=== PATIENT | male | born 1930 | race Caucasian/White ===

== ENCOUNTER 2019-09-27 14:00 | Inpatient (IN) ==
[2019-09-27] MEDS ORDERED: NS 1,000 ML IV ONE ×2 (14:25→15:17)
[2019-09-27] MEDS ORDERED: TYLENOL PO ONE (14:29)
[2019-09-27 14:48] LABS: BASO# 0.01 X1000 (0.0-0.2); BASO% 0.1 % (0.0-0.8); HEMATOCRIT 44.7 % (42.0-52.0); HEMOGLOBIN 14.6 g/dL (14.0-18.0); IMM GRAN# 0.16 X1000 (0.0-0.04); IMM GRAN% 1.1 % (0.0-0.5); LYMPH# 0.19 X1000 (1.2-3.4); LYMPH% 1.4 % (20.5-51.1); MCH 32.2 PG (27-31); MCHC 32.7 g/dL (33-37); MCV 98.5 FL (81-99); MONO# 0.18 X1000 (0.11-0.59); MONO% 1.3 % (1.7-9.3); MPV 11.2 FL (7.4-10.4); NEUT# 13.43 X1000 (1.4-6.5); NEUT% 96.1 % (42.2-75.2); PLT 118 X1000 (130-400); RBC 4.54 XMIL (4.7-6.1); RDW 12.5 % (11.5-14.5); WBC 13.97 X1000 (4.8-10.8)
[2019-09-27 14:56] LABS: INR 1.11; PROTIME 14.9 Seconds (11.0-16.0)
[2019-09-27 14:57] LABS: PTT 35.1 Seconds (22.3-41.8)
[2019-09-27 14:58] LABS: ALBUMIN 4.3 g/dL (3.5-5.0); CALCIUM 9.5 mg/dL (8.8-10.2); CREATININE 1.4 mg/dL (0.7-1.2); POTASSIUM 4.6 mmol/L (3.5-5.1); TOTAL BILIRUBIN 1.9 mg/dL (0.20-1.00); TOTAL PROTEIN 6.4 g/dL (6.3-8.3)
[2019-09-27] MEDS ORDERED: NS 500 ML IV ONE (15:17)
[2019-09-27 15:20] LABS: INFLUENZA A NEGATIVE (NEGATIVE); INFLUENZA B NEGATIVE (NEGATIVE)
[2019-09-27] MEDS ORDERED: NS 50 ML ONE (15:40)
[2019-09-27] MEDS ORDERED: ROCEPHIN IV ONE (15:40)
--- NOTE | 2019-09-27 15:45 | PROVIDER DOCUMENTATION ---
This chart was entered by Anne-Marie Neumann Scribe, acting as scribe for Millie Simmons MD. HPI-General Adult - General Chief Complaint: Nausea/Vomiting Stated Complaint: NAUSEA & VOMITING Time Seen by Provider: 09/27/19 14:05 Source: patient Allergies/Adverse Reactions: Patient Allergies Allergy/AdvReac Type Severity Reaction Status Date / Time No Known Allergies Allergy Verified 09/27/19 14:53 Home Medications: Home Medication List Medication Instructions Recorded Confirmed Last Taken Type Carvedilol [Coreg] 6.25 mg PO BID 10/17/14 09/27/19 05/15/18 05:30 History Celecoxib [Celebrex] 200 mg PO DAILY 10/17/14 09/27/19 05/11/18 History Lisinopril/Hydrochlorothiazide 1 tab PO DAILY 10/17/14 09/27/19 05/14/18 09:00 History [Lisinopril-Hctz 20-12.5 mg Tab] Metformin [Glucophage] 500 mg PO DAILY 10/17/14 09/27/19 05/14/18 09:00 History SIMVAstatin [Zocor] 40 mg PO QHS 10/17/14 09/27/19 05/14/18 21:00 History Acetaminophen [Tylenol] 1,000 mg PO Q6H tablet 05/16/18 09/27/19 Unknown Rx Aspirin 1 tab PO DAILY 09/27/19 09/27/19 Unknown History Folic Acid 1 tab PO DAILY 09/27/19 09/27/19 Unknown History Davey-3 Fatty Acids/Fish Oil [Fish 1 cap PO DAILY 09/27/19 09/27/19 Unknown History Oil 1,000 mg Capsule] - History of Present Illness -Gen Adult Nature of Presenting Problems: Patient is a 89 year old male who presents to the ED via EMS with multiple symptoms. States symptoms of nausea, vomiting, chills, fever and weakness. Reports symptoms started this morning. Denies body aches and cough. Location of Pain/Injury: reports: none Quality of Pain: reports: none Severity: reports: mild Onset/Duration: reports: this morning Associated Symptoms: reports: fever/chills, nausea, vomiting, weakness Similar Symptoms Previously?: No Recently seen or treated by another doctor?: No Review of Systems - Adult - REVIEW OF SYSTEMS - ADULT Constitutional: reports: see HPI, chills, fever. denies: fatique Eyes: reports: no symptoms reported Ears, Nose, Mouth & Throat: reports: no symptoms reported Cardiovascular: reports: no symptoms reported Respiratory: reports: no symptoms reported Gastrointestinal: reports: see HPI, nausea, vomiting. denies: abdominal pain Genitourinary: reports: no symptoms reported Musculoskeletal: reports: see HPI, muscle weakness. denies: frequent leg cramps, muscle aches Integumentary: reports: no symptoms reported Neurological: reports: no symptoms reported Psychiatric: reports: no symptoms reported Endocrine: reports: no symptoms reported Hematologic/Lymphatic: reports: no symptoms reported Allergic/Immunologic: reports: no symptoms reported All Other Systems: Reviewed and Negative Past History - Adult - PAST MEDICAL HISTORY-ADULT Review of Records: reports: Old Records Reviewed, Nursing Assessment Review, Medications Reviewed, Social history reviewed & non-contributory. Major Childhood Illnesses: reports: denies history Cardiovascular: reports: HTN, hyperlipidemia Respiratory: reports: denies history Gastrointestinal: reports: other (diverticulitis) Obstetrical/Gynecological: reports: denies history Genitourinary: reports: denies history Musculoskeletal: reports: denies history Neurological: reports: denies history Endocrine/Immune: reports: denies history Other Conditions: reports: other cancer (melenoma) - PRIOR SURGERIES/PROCEDURES Surgical/Procedure History: reports: joint replacement, back/neck - IMMUNIZATION STATUS Childhood Immunizations: See Nurse Assessment Flu Vaccine: See Nurse Assessment - FAMILY HISTORY Family History: reviewed, not pertinent - SOCIAL HISTORY Smoking: denies Substance Use: alcohol Alcohol Use Frequency: every day Number of drinks per typical drinking period:: 2 drinks Physical Exam-General - PHYSICAL EXAM-ADULT Initial Vital Signs Reviewed: Yes - CONSTITUTIONAL General Appearance: alert, no apparent distress. negative: obtunded - HEAD, EARS, NOSE, MOUTH & THROAT HENMT: normocephalic/atraumatic, other (dry mucous membranes). negative: angioedema - RESPIRATORY Respiratory: chest non-tender, lungs clear, normal breath sounds. negative: increased rate - CARDIOVASCULAR Cardiovascular: normal peripheral pulses, regular rate, rhythm. negative: tachycardia - GASTROINTESTINAL (ABDOMEN) Abdominal Exam: normal bowel sounds, non tender, soft. negative: guarding - SKIN Integumentary: normal color, normal turgor, warm/dry. negative: diaphoresis, pallor - NEUROLOGIC Neurologic: grossly normal. negative: aphasia, facial droop - PSYCHIATRIC Psych/Mental Status: normal mood/affect, oriented x 3. negative: anxious Progress - PLAN OF CARE/RESULTS Progress/Plan/Lab Results: Vital Signs - 8 hr 09/27/19 14:04 Temperature 101.1 F H Pulse Rate 85 Respiratory Rate 16 Blood Pressure 111/60 O2 Sat by Pulse Oximetry 91 L Orders Category Date Time Status Oxygen Therapy- ED Nursing DIRECTED Care 09/27/19 14:15 Active Saline Loc DIRECTED Care 09/27/19 14:12 Active NPO Diet 09/27/19 14:12 Active CBC WITH ELECTRONIC DIFF [HEME] Stat Lab 09/27/19 14:12 Ordered COMPREHENSIVE METABOLIC PANEL [CHEM] Stat Lab 09/27/19 14:[address] Stat Lab 09/27/19 14:12 Uncollected URINALYSIS W/POSS RFLX CULT [URINALYSIS] Stat Lab 09/27/19 14:12 Uncollected Result Diagrams: 09/28/19 05:35 09/28/19 05:35 - XRAY 1 XRAY Study: Chest Impression: See EMR Report ( EXAM: CHEST-PORTABLE - 09/27/2019 HISTORY: fever TECHNIQUE: Portable chest COMPARISON: None. FINDINGS: There is elevation right hemidiaphragm. The right heart border is partially obscured by the elevated hemidiaphragm, heart size appears grossly normal. In addition to the elevated right hemidiaphragm, and inspiration is mildly shallow. The lungs appear essentially clear. There is no consolidation, pleural effusion, or pneumothorax identified. IMPRESSION: Mildly shallow inspiration. Elevation of right hemidiaphragm. No evidence of pneumonia. Electronically signed by [facility] becca Sanabria 09/27/2019 3:49 PM 09/27/19 [id number] Interpreting Physician: Robel Sanabria MD Dictated Date/Time: 09/27/19 1543 cc: Millie Simmons MD; None,PCP) - CONSULTS/PCP/HOSPITALIST Notification #1 *Consult/PCP/Hospitalist*: Dr. Sanders Time Discussed: 15:42 Reason/Comments: Dr. Simmons consulted with Dr. Sanders about patient. Departure - Departure Date of Disposition Decision: 09/27/19 Time of Disposition Decision: 15:42 DIAGNOSIS: Sepsis Qualifiers: Sepsis type: sepsis due to unspecified organism Sepsis acute organ dysfunction status: unspecified Qualified Code(s): A41.9 - Sepsis, unspecified organism Disposition: ADMITTED INPATIENT 09 Certified Medical Emergency: Emergent Condition: Critical - Critical Care Note This patient required my direct & personal management of CC.: Yes Total Time (mins): 31 Critical Care Statement: This patient required my direct personal management to treat or rule out processes, the absence of which, could potentiallly result in sudden, clinically significant life or limb threatening deterioration. Attestation - Physician/ WES Attestation The physician spent face to face time with patient:: Yes Advanced Practice Provider documentation review:: Supervising physician onsite and consulted in the evaluation and care of this patient. The physician did have a face to face encounter with the patient. This chart was documented by the indicated scribe, (Anne-Marie Neumann Scribe) and a ccurately reflects the services I performed and decisions made by me, Millie Simmons MD, as attested by the provider's signature.
--- NOTE | 2019-09-27 15:52 | Diag Imaging Result Doc PS360 ---
EXAM: CHEST-PORTABLE - 09/27/2019 HISTORY: fever TECHNIQUE: Portable chest COMPARISON: None. FINDINGS: There is elevation right hemidiaphragm. The right heart border is partially obscured by the elevated hemidiaphragm, heart size appears grossly normal. In addition to the elevated right hemidiaphragm, and inspiration is mildly shallow. The lungs appear essentially clear. There is no consolidation, pleural effusion, or pneumothorax identified. IMPRESSION: Mildly shallow inspiration. Elevation of right hemidiaphragm. No evidence of pneumonia. Electronically signed by Robel Sanabria 09/27/2019 3:49 PM
[2019-09-27] MEDS ORDERED: ROCEPHIN 1 GM in NS 50 ML IV SCH (16:00)
[2019-09-27 16:13] LABS: URINE SOURCE CATH
[2019-09-27 16:34] LABS: BILIRUBIN URINE NEGATIVE (NEGATIVE); BLOOD URINE NEGATIVE (NEGATIVE); COLOR ORANGE; GLUCOSE URINE NEGATIVE (NEGATIVE); KETONE URINE 10 mg/dL (NEGATIVE); LEUKOCYTES URINE NEGATIVE (NEGATIVE); NITRITE URINE NEGATIVE (NEGATIVE); PH URINE 6.5; PROTEIN URINE 50 mg/dL (NEGATIVE); SP GRAVITY URINE 1.023; TURBIDITY URINE CLEAR (CLEAR); UROBILINOGEN URINE NORMAL (NORMAL)
[2019-09-27 16:35] LABS: UR EPITHELIAL CELLS <10 /HPF (<10); URINE BACTERIA NEGATIVE /HPF; URINE RBC <10 /HPF (<10); URINE WBC <10 /HPF (<10)
[2019-09-27] MEDS ORDERED: TYLENOL PO PRN (16:35)
[2019-09-27] MEDS ORDERED: ZOFRAN IV PRN ×2 (16:35→17:37)
[2019-09-27] MEDS ORDERED: NS 1,000 ML IV SCH ×2 (16:35→17:45)
[2019-09-27] MEDS: LEVOPHED 8 MG in D5 1/2 NS 250 ML IV SCH ×2 (17:17→17:55)
[2019-09-28] MEDS ORDERED: TYLENOL PO PRN (00:04)
[2019-09-28] MEDS ORDERED: ZOFRAN IV PRN (00:04)
[2019-09-28] MEDS ORDERED: LEVOPHED 8 MG in D5 1/2 NS 250 ML IV SCH (00:15)
[2019-09-28] MEDS: NS 1,000 ML IV SCH ×2 (00:29→08:21)
[2019-09-28] MEDS: BLISTEX MEDICATED BERRY LIP BALM TOP PRN ×2 (02:31→08:22)
--- NOTE | 2019-09-28 03:56 | HISTORY AND PHYSICAL ---
PRIMARY CARE PHYSICIAN: Listed as none. CHIEF COMPLAINT: Nausea, vomiting, chills, subjective fever and weakness that began this a.m. and progressively worsened. HISTORY OF PRESENTING ILLNESS: This is an 89-year-old male who presents to [facility] ER via EMS with complaints of nausea, vomiting, chills, fever and weakness. He stated that the symptoms began this morning, he states he had a hard time controlling the chills. When he arrived to the emergency room he had a temperature of 101.1 degrees. His blood pressure was 111/60, saturating 91% on room air. He did drop a couple hours after he arrived his blood pressure down to 74/55, was given a total of 2.5 L of normal saline, it did come up to 95/53. We placed him in a Trendelenburg position, but he still dropped again to 74/55, so we are going to start a Levophed drip, and he will be admitted to the intensive care unit for further evaluation and treatment. He was noted to have a white count of 13.97, but no specific source of infection at this time. His urinalysis was negative, and his chest x-ray showed no evidence of pneumonia. PAST MEDICAL HISTORY: Hypertension, hyperlipidemia, melanoma, and diabetes type 2. PAST SURGICAL HISTORY: Right hip replacement, back and neck surgery, and an MRSA of the nasal cavity removed. FAMILY HISTORY: Reviewed and noncontributory. SOCIAL HISTORY: He currently lives with his . Denied any tobacco use. He drinks 2 liquor drinks daily, and denied any illicit drug use. ALLERGIES: He has no known drug allergies. HOME MEDICATIONS: A current list will need to be obtained, reconciled, reviewed and restarted as appropriate, we will place an order for nursing to update and confirm home medications. LABORATORY DATA: Showed a white blood cell count of 13.97, hemoglobin 14.6, hematocrit 44.7, platelets 118,000. PT and INR of 14.9 and 1.11. Sodium 139, potassium 4.6, chloride 100, CO2 is 23, BUN of 40, creatinine 1.4, glucose 148. Cardiac enzyme was negative, plasma lactate of 2.5. Urinalysis was negative. Influenza A and B were negative. Chest x-ray showed mild shallow inspiration, no evidence of pneumonia. REVIEW OF SYSTEMS: He was positive for a subjective fever, chills, generalized weakness, nausea, vomiting, some right upper quadrant abdominal tenderness. He denied any constipation, diarrhea, burning or hurting with urination. PHYSICAL EXAMINATION: VITAL SIGNS: On arrival he had a temperature of 101.1 degrees, pulse 85, respirations 16, blood pressure 111/60, saturating 91% on room air. About an hour and a half later on arrival he dropped his blood pressure to 74/55, he was given a 2.5 L bolus of normal saline, it did come up after he was placed in Trendelenburg also to 95/53, it then dropped again to 74/58. GENERAL: This is an 89-year-old male who is lying in the bed, answers questions appropriately. HEENT: Normocephalic, atraumatic. Normal ENT inspection. Oropharynx and nares are clear. EYES: Pupils are equal, round and reactive to light and accommodation. Extraocular movements are intact. NECK: Normal inspection. Normal range of motion. LUNGS: Clear to auscultation bilaterally with equal lung expansion and chest wall movement. HEART: Regular rate and rhythm. No murmurs, rubs, or gallops. ABDOMEN: Soft. There was some tenderness to the right upper quadrant. Bowel sounds are present x4 quadrants. MUSCULOSKELETAL: He had 4/5 strength x4 extremities. NEUROLOGICAL: The cranial nerves II-XII appear grossly intact. ASSESSMENT: 1. Sepsis. 2. Hypotension. 3. Mild leukocytosis. 4. Suspect a urinary tract infection, but we will have to await urine culture results. PLAN: He will be admitted to the Intensive Care Unit at [facility], placed on telemetry O2 per protocol. He has an indwelling Moreno catheter. We need to update and confirm home medications, and then we will review those to restart. Placed him on a Levophed drip per protocol, Rocephin 1 gram IV q. 24. Urine culture is pending. We will recheck a CBC and BMP in the a.m., and further orders after seen by attending. Dictated by TAMI Ji for Venkat Sanders MD cc: TAMI Ji MD
--- NOTE | 2019-09-28 04:48 | HISTORY AND PHYSICAL ---
ADDENDUM: Patient seen and examined by myself. Full note dictated and discussed with nurse practitioner. The patient presented with nausea, vomiting, fevers and chills. Generalized weakness. He is an 89-year-old male who is acutely ill. He is awake, alert, oriented. Unsure of the etiology of his current infection although certainly may be a urinary infection. He has an elevated white count. Blood sugar is at 148. Temperature is 101.1. He currently is in Trendelenburg. We have started him on Levophed. Blood pressures are 80s and 90s systolic. I am going to place him on antibiotics, get a blood culture, urine culture, and we will follow. Please see full note. cc: Venkat Sanders MD
[2019-09-28 06:46] LABS: BASO# 0.04 X1000 (0.0-0.2); BASO% 0.2 % (0.0-0.8); EOS% 0.4 % (0.0-10.0); HEMATOCRIT 39.4 % (42.0-52.0); HEMOGLOBIN 12.9 g/dL (14.0-18.0); LYMPH# 0.77 X1000 (1.2-3.4); LYMPH% 3.4 % (20.5-51.1); MCH 33.5 PG (27-31); MCHC 32.7 g/dL (33-37); MCV 102.3 FL (81-99); MONO# 1.93 X1000 (0.11-0.59); MONO% 8.5 % (1.7-9.3); MPV 11.7 FL (7.4-10.4); NEUT# 19.87 X1000 (1.4-6.5); NEUT% 87.5 % (42.2-75.2); PLT 118 X1000 (130-400); RBC 3.85 XMIL (4.7-6.1); RDW 13.1 % (11.5-14.5); WBC 22.71 X1000 (4.8-10.8)
[2019-09-28 07:02] LABS: CALCIUM 8.2 mg/dL (8.8-10.2); CREATININE 1.3 mg/dL (0.7-1.2)
[2019-09-28 08:07] LABS: BANDS 7 % (0-1); LYMPHS 3 % (21-51); MONO 8 % (1-9); SEGS 82 % (42-75)
[2019-09-28] MEDS: MAXIPIME 2 GM in NS 100 ML IV SCH ×2 (09:45→20:28)
[2019-09-28 10:43] LABS: URINE SOURCE CATH
[2019-09-28 10:56] LABS: BILIRUBIN URINE NEGATIVE (NEGATIVE); BLOOD URINE SMALL (NEGATIVE); COLOR YELLOW; GLUCOSE URINE NEGATIVE (NEGATIVE); KETONE URINE TRACE mg/dL (NEGATIVE); LEUKOCYTES URINE NEGATIVE (NEGATIVE); NITRITE URINE NEGATIVE (NEGATIVE); PH URINE 5.5; PROTEIN URINE 30 mg/dL (NEGATIVE); SP GRAVITY URINE 1.021; TURBIDITY URINE CLEAR (CLEAR); UROBILINOGEN URINE NORMAL (NORMAL)
[2019-09-28 11:00] LABS: UR EPITHELIAL CELLS <10 /HPF (<10); URINE BACTERIA NEGATIVE /HPF; URINE RBC <10 /HPF (<10); URINE WBC <10 /HPF (<10)
[2019-09-28] MEDS ORDERED: NS 1,000 ML IV SCH (11:07)
[2019-09-28 11:14] LABS: URINE CASTS NONE SEEN; URINE CRYSTALS NONE SEEN; URINE SMALL ROUND CELLS NONE SEEN; URINE YEAST NONE SEEN
--- NOTE | 2019-09-28 12:43 | EKG Report ---
Test Performed on : 09/28/2019 11:03:10 AM Test Reason : Hypotension Blood Pressure : / mmHG Vent. Rate : 073 BPM Atrial Rate : 073 BPM P-R Int : 248 ms QRS Dur : 082 ms QT Int : 392 ms P-R-T Axes : 043 026 016 degrees QTc Int : 431 ms Sinus rhythm. with 1st degree AV block. Nonspecific ST and T wave abnormality Abnormal ECG When compared with ECG of 10-MAY-2018 08:18, No significant change was found Confirmed by Ross JULIO, Marvin ([id number]) on 10/01/2019 8:22:07 AM
--- NOTE | 2019-09-28 13:35 | Diag Imaging Result Doc PS360 ---
EXAM: CT THORAX W/O CONTRAST 09/28/2019 HISTORY: Evaluate for right lower lobe pneumonia TECHNIQUE: This exam was performed using automated exposure control, adjustment of mA or kV according to patient size, and/or use of iterative reconstruction technique. COMMENT: There are no previous studies. There are calcifications in the thoracic aorta which does not appear to be distended. There are extensive calcifications in the coronary arteries and in the aortic valve region. There are bilateral pleural effusions. There are dense subcentimeter gallstones. There is diverticulosis in the transverse colon and a cyst is present in the caudate lobe of the liver. There is some atelectasis in both lower lobes posteriorly particularly on the right side. The possibility of right lower lobe pneumonia cannot be excluded. There are spondylotic changes in the thoracic spine. No acute bony abnormalities are demonstrated. IMPRESSION: Right lower lobe pneumonia and bilateral pleural effusions. Other nonacute findings as described above. Electronically signed by Almas Rodriguez 09/28/2019 1:33 PM
[2019-09-28] MEDS ORDERED: ROCEPHIN 1 GM in NS 50 ML IV SCH ×4 (16:00)
--- NOTE | 2019-09-28 18:14 | PROGRESS NOTE ---
DATE: 09/28/2019 INTERVAL HISTORY: Mr. Barajas was transferred over from [facility] for septic shock. 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 In the morning time, he was feeling fine but after some time, he started suddenly feeling extremely weak, and he was not able to come out of his chair, so he decided to come to the emergency room. Currently, he denies any chest pain, shortness of breath or cough. Denies any nausea, vomiting, abdominal pain, burning micturition, diarrhea or constipation. He states that he had a couple of episodes of vomiting before he presented by EMS. Since then he has been feeling well. OBJECTIVE: Vitals: Temperature 97.4 degrees, pulse 71, respiratory rate 18, blood pressure 100/67, saturating 97% on 2 L nasal cannula. General: Not in acute distress. HEENT: Oral cavity is moist. Mild pharyngeal congestion. Respiratory: He has decreased air entry right infrascapular region. He has air entry otherwise bilaterally equal. No wheeze, rhonchi, or crackles. Cardiovascular: S1, S2 normal. Prominent systolic murmur affecting base of the heart. No rub or gallop. Abdomen: Obese, soft, nontender. Active bowel sounds. Musculoskeletal: No lower extremity edema. He has a large scar of melanoma resection over his back. There is a small punctate lesion right underneath the scar without any pus coming out. He has mild edema of left upper extremity, and there is also a cyst on the left wrist which does not appear infected. LABORATORY DATA: Suggestive of leukocytosis, anemia, thrombocytopenia. He has prominent neutrophilia. He has elevated BUN and creatinine suggestive of CKD stage 3. His blood culture is growing gram-negative cindy. IMAGING: Chest x-ray was performed which was unremarkable. ASSESSMENT AND PLAN: 1. Septic shock. Differential includes right lower lobe pneumonia. Continue intravenous fluids. He has received more than 3 L so far, and my plan is to switch it off in some time. Continue intravenous antibiotics with cefepime, which I started. Follow up final blood culture results. Get a CT scan thorax to evaluate right lower lobe pneumonia. In future I may consider getting a CT scan of his sinuses to rule out any abscess. Continue norepinephrine to maintain MAP more than 65 mmHg. Follow up urine antigens. EKG, echocardiogram. 2. Others: History of essential hypertension, hyperlipidemia. I will resume his medication, which he has tolerated. DISPOSITION: Continue to monitor him in ICU. TIME SPENT: More than 30 minutes of critical care time was spent taking care of this patient. Plan of care discussed with the patient and his son at bedside. Their questions have been satisfactorily answered. cc: José Ackerman MD
[2019-09-28] MEDS: ZOCOR PO SCH (20:27)
--- NOTE | 2019-09-28 23:41 | PROGRESS NOTE ---
DATE: 09/28/2019 INTERVAL HISTORY: Mr. Barajas was transferred from [facility] for septic shock. Overnight he did not have any acute events except his blood culture was growing gram-negative rods. SUBJECTIVE: Mr. Barajas states that he was working in the yard the day prior to current presentation and later on he started feeling really bad, had an episode of chills. He also had a fever on presentation. Currently he denies any chest pain. He is feeling mildly short of breath and tachypneic. Denies nausea, vomiting, abdominal pain anymore. He did have episode of nausea and vomiting before. VITAL SIGNS: Temperature 98.4 degrees, pulse 70, respiratory rate 18, blood pressure 103/58, saturating 95% on 2 L nasal cannula. PHYSICAL EXAMINATION: Mildly tachypneic. Oral cavity is moist. Mild pharyngeal congestion. He has decreased air entry with inspiratory crackles on right infrascapular region. Cardiovascular: S1, S2 normal, not tachycardic. No murmur or gallop. Abdomen: Obese, soft, nontender. Extremity: No lower extremity edema. He is alert and oriented x3. He had a scar of previous melanoma resection on his back. LABORATORIES: Suggestive of leukocytosis, anemia. Normal platelet count. Chronic kidney disease stage III. Influenza was negative. ASSESSMENT AND PLAN: 1. Septic shock from suspected right lower lobe pneumonia due to gram-negative rods. 2. History of essential hypertension. PLAN: His antibiotics have been changed to intravenous cefepime. Follow up final blood culture results. Continue norepinephrine to maintain MAP more than 65 mmHg. Follow up final blood culture results. DISPOSITION: Continue to monitor the patient in ICU. Plan of care discussed with him and his son at bedside. All of their questions were answered. GOALS OF CARE DISCUSSION: The patient expressed that he would not want any chest compressions, breathing tube or ventilator management. His code status is DNR level 1. cc: José Ackerman MD
[2019-09-29 08:47] LABS: AGAP 11; BUN 29 mg/dL (8-22); CALCIUM 8.7 mg/dL (8.8-10.2); CHLORIDE 101 mmol/L (98-107); COSMO 273; CREATININE 1.1 mg/dL (0.7-1.2); ESTIMATED GFR > 60; GLUCOSE 120 mg/dL (70-104); MAGNESIUM 1.9 mg/dL (1.5-2.7); POTASSIUM 4.3 mmol/L (3.5-5.1); SODIUM 133 mmol/L (136-145); TCO2 21 mmol/L (25-35)
[2019-09-29 09:00] LABS: BASO# 0.01 X1000 (0.0-0.2); BASO% 0.1 % (0.0-0.8); EOS# 0.31 X1000 (0.0-0.7); EOS% 2.9 % (0.0-10.0); HEMATOCRIT 38.2 % (42.0-52.0); HEMOGLOBIN 12.3 g/dL (14.0-18.0); IMM GRAN# 0.03 X1000 (0.0-0.04); IMM GRAN% 0.3 % (0.0-0.5); LYMPH# 0.58 X1000 (1.2-3.4); LYMPH% 5.4 % (20.5-51.1); MCH 32.8 PG (27-31); MCHC 32.2 g/dL (33-37); MCV 101.9 FL (81-99); MONO# 0.86 X1000 (0.11-0.59); MONO% 8.1 % (1.7-9.3); MPV 11.9 FL (7.4-10.4); NEUT# 8.86 X1000 (1.4-6.5); NEUT% 83.2 % (42.2-75.2); PLT 95 X1000 (130-400); RBC 3.75 XMIL (4.7-6.1); RDW 12.8 % (11.5-14.5); WBC 10.65 X1000 (4.8-10.8)
[2019-09-29] MEDS: ASPIRIN PO SCH (09:14)
[2019-09-29] MEDS: FISH OIL CONCENTRATE PO SCH (09:14)
[2019-09-29] MEDS: MAXIPIME 2 GM in NS 100 ML IV SCH ×2 (09:15→20:44)
[2019-09-29] MEDS: FOLIC ACID PO SCH (09:15)
[2019-09-29] MEDS: BLISTEX MEDICATED BERRY LIP BALM TOP PRN (09:15)
[2019-09-29 09:33] LABS: BANDS 8 % (0-1); EOS 2 % (1-10); LYMPHS 6 % (21-51); MONO 8 % (1-9); SEGS 76 % (42-75)
--- NOTE | 2019-09-29 11:08 | ECHO REPORT ---
ORDER DATE: 09/28/2019 ECHOCARDIOGRAPHIC MEASUREMENTS: 1. Aortic root 2.9. 2. Left atrium 4.7. SUMMARY: 1. Technically difficult study due to limited parasternal acoustic window quality. 2. The aortic valve is not well imaged, but demonstrates prominent fibrocalcific changes with markedly reduced aortic valve leaflet mobility. The peak gradient across the aortic valve is 75 mmHg with a mean gradient of 54 mmHg. The calculated aortic valve area by Doppler is 0.7 cm2 suggesting severe stenosis. There is mild aortic regurgitation. Mitral and tricuspid valves are without evidence of structural abnormality, while pulmonic valve is not well demonstrated. There is mild to moderate mitral regurgitation and very mild tricuspid regurgitation. The estimated systolic PA pressure by Doppler is 65 mmHg suggesting moderate pulmonary hypertension. The aortic root is normal in size. 3. Normal left ventricular dimensions with mild concentric left hypertrophy is suggested on 2- dimensional images. The estimated left ventricular ejection fraction appears to be at least 65%. No regional wall motion abnormalities are evident. Left atrium is mildly enlarged. The right atrium and right ventricle are normal in size with grossly preserved right ventricular systolic function. 4. No pericardial effusion. 5. Appearance of inferior vena cava suggests normal central venous pressure. CONCLUSIONS: 1. Technically difficult study. 2. Severe calcific aortic stenosis with mild aortic regurgitation. 3. Mild to moderate mitral regurgitation. 4. Very mild tricuspid regurgitation with moderate pulmonary hypertension by Doppler. 5. Mild concentric left ventricular hypertrophy with estimated ejection fraction at least 65%. 6. Mild left atrial enlargement. cc: MD José Dudley MD
--- NOTE | 2019-09-29 18:08 | PROGRESS NOTE ---
DATE: 09/29/2019 INTERVAL HISTORY: His norepinephrine has been off since 5 p.m. yesterday. He did not have any acute overnight events. He did have right lower lobe pneumonia on the CT scan. SUBJECTIVE: He is denying any chest pain or shortness of breath. He occasionally was coughing at nighttime, but did not bring up sputum. He denies nausea, vomiting, or abdominal pain. He is passing gas. We discussed about pneumonia, taking the urine catheter out, allowing him to come out of bed. I answered all of his questions. VITALS: Temperature 98.6 degrees, pulse 73, respiratory 21, blood pressure 113/85, saturating 96% on 3 L nasal cannula. PHYSICAL EXAMINATION: Not in any acute distress. Oral cavity is moist. No wheeze or rhonchi. He does have decreased air entry in right infrascapular region with pleural effusion and inspiratory crackles. Mild inspiratory crackles on left infrascapular region as well. S1, S2 normal. No murmur, rub, or gallop, except systolic murmur affecting base of the heart.Abdomen: Obese, soft, tympanic to percussion, nontender. No lower extremity edema. He is alert and oriented x3. He has a scar on his back on my previous examination of resection of melanoma. LABORATORY DATA: Labs are currently pending. Blood cultures both growing gram-negative rods. ASSESSMENT AND PLAN: 1. Septic shock due to gram-negative cindy, likely from right lower lobe pneumonia. Continue intravenous cefepime. He has been off intravenous norepinephrine since 12 hours. Follow up final blood culture results. Follow up sputum culture and urine antigen. 2. Others, history of essential hypertension, hyperlipidemia. I will continue his home simvastatin, aspirin, and omega fatty acids. 3. Disposition. I will monitor patient in ICU for 24 hours. Plan of care discussed with the patient and his questions have been answered. His code status is DNR level 1. cc: José Ackerman MD
[2019-09-29] MEDS: ZOCOR PO SCH (20:44)
[2019-09-30] MEDS ORDERED: LASIX PO ONE (08:51)
--- NOTE | 2019-09-30 09:36 | PROGRESS NOTE ---
DATE: 09/30/2019 INTERIM HISTORY: No acute events overnight. SUBJECTIVE: Mr. Barajas states he is feeling a little short of breath when he does physical activity. He denies any chest pain or shortness of breath at rest. He has occasional cough without expectoration. He says he is not feeling good in his stomach today and does not feel like eating today. We discussed about lung findings, blood culture findings. We discussed about severe aortic stenosis and I answered all of his questions. VITALS: Temperature is 98.2 degrees, pulse 76, respiratory 21, blood pressure 130/70. He is saturating 96% on 3 L nasal cannula. PHYSICAL EXAMINATION: General: Not in any acute distress. Mouth: Oral cavity is moist. Lungs: He has improved air entry in right infrascapular region as compared to before, though he does have inspiratory crackles bilaterally. Heart: His S1, S2 is normal. He has a systolic murmur affecting the second intercostal space on the right. No rub or gallop. Abdomen: Distended, soft, nontender. Active bowel sounds. Extremities: No lower extremity edema. Neurologic: He is alert and oriented x3. 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 His left wrist swelling is decreasing. INPUT AND OUTPUT: Negative 890 mL so far today. LABS: No CBC or BMP today. Microbiology: Blood culture is growing Escherichia coli, which is sensitive to cefazolin and levofloxacin. ASSESSMENT AND PLAN: 1. Septic shock due to Escherichia coli, likely from right lower lobe pneumonia. He does drink alcohol at nighttime, but did not have any known aspiration event. He has been off intravenous norepinephrine. Follow up final repeat blood culture results. Change antibiotics from intravenous cefepime to intravenous levofloxacin. His urine antigens were in lab. 2. History of essential hypertension and hyperlipidemia. I will continue his home simvastatin, aspirin, and [place] fatty acid. 3. Severe aortic stenosis. His left ventricular function has been normal and he denies significant symptoms at the moment, though, he currently gets short of breath on physical exertion. I will advise him outpatient cardiology followup. Echocardiogram result was noted. 4. Thrombocytopenia. Could be in the setting of septic shock. I will follow up with complete blood count tomorrow. DISPOSITION: I will have physical therapy evaluate the patient. Transfer patient to the routine medical floor with telemetry. Plan of care discussed with the patient and his questions have been answered. cc: José Ackerman MD
[2019-09-30] MEDS: ASPIRIN PO SCH (09:41)
[2019-09-30] MEDS: FISH OIL CONCENTRATE PO SCH (09:41)
[2019-09-30] MEDS: LEVAQUIN 750 MG/D5W 750 MG/150 ML IVPB IV SCH (09:42)
[2019-09-30] MEDS: FOLIC ACID PO SCH (09:50)
[2019-09-30] MEDS ORDERED: FLU VACCINE IM ONE (17:17)
[2019-09-30] MEDS: ZOCOR PO SCH (21:01)
[2019-10-01 07:11] LABS: BASO# 0.02 X1000 (0.0-0.2); BASO% 0.2 % (0.0-0.8); EOS% 2.4 % (0.0-10.0); HEMATOCRIT 38.6 % (42.0-52.0); HEMOGLOBIN 12.9 g/dL (14.0-18.0); IMM GRAN# 0.06 X1000 (0.0-0.04); IMM GRAN% 0.7 % (0.0-0.5); LYMPH# 0.81 X1000 (1.2-3.4); LYMPH% 9.5 % (20.5-51.1); MCH 32.8 PG (27-31); MCHC 33.4 g/dL (33-37); MCV 98.2 FL (81-99); MONO# 1.21 X1000 (0.11-0.59); MONO% 14.2 % (1.7-9.3); MPV 11.3 FL (7.4-10.4); PLT 127 X1000 (130-400); RBC 3.93 XMIL (4.7-6.1); RDW 12.3 % (11.5-14.5)
[2019-10-01 07:17] LABS: AGAP 5; BUN 20 mg/dL (8-22); CALCIUM 9.1 mg/dL (8.8-10.2); CHLORIDE 99 mmol/L (98-107); COSMO 274; CREATININE 1.1 mg/dL (0.7-1.2); ESTIMATED GFR > 60; GLUCOSE 121 mg/dL (70-104); MAGNESIUM 1.7 mg/dL (1.5-2.7); POTASSIUM 4.1 mmol/L (3.5-5.1); SODIUM 135 mmol/L (136-145); TCO2 31 mmol/L (25-35)
[2019-10-01] MEDS: FISH OIL CONCENTRATE PO SCH (09:45)
[2019-10-01] MEDS: LEVAQUIN 750 MG/D5W 750 MG/150 ML IVPB IV SCH (09:45)
[2019-10-01] MEDS: FOLIC ACID PO SCH (09:45)
[2019-10-01] MEDS: ASPIRIN PO SCH (09:45)
--- NOTE | 2019-10-01 10:21 | Diag Imaging Result Doc PS360 ---
EXAM: CHEST-2 VIEWS HISTORY: Followup RLL pneumonia TECHNIQUE: Two views COMPARISON: 09/27/2019 FINDINGS: There are tiny bilateral pleural effusions. Right hemidiaphragm is elevated. No cardiomegaly. No pulmonary edema. No infiltrates identified. IMPRESSION: Small effusions Electronically signed by Joe Sanders 10/01/2019 10:19 AM
[2019-10-01 15:34] VITALS: BP 123/69
--- NOTE | 2019-10-02 19:37 | DISCHARGE SUMMARY ---
ADMISSION DATE: 09/27/2019 DISCHARGE DATE: 10/01/2019 DISCHARGE DISPOSITION: Home. DISCHARGE CONDITION: Hemodynamically stable. He is denying chest pain. He is not feeling short of breath. He is on room air. He has occasional cough. I discussed with him about need for taking 12 days off oral antibiotic. I discussed with him about need for cardiology and regular physician followup for his aortic stenosis. He understood it. All of his questions have been answered. DISCHARGE DIAGNOSES: 1. Septic shock due to Escherichia coli likely from right lower lobe pneumonia. 2. Right lower lobe pneumonia leading to septic shock. 3. Acute kidney injury likely acute tubular necrosis because of septic shock. 4. Severe aortic stenosis. 5. Thrombocytopenia in the setting of septic shock. OTHER DIAGNOSES: 1. History of essential hypertension. 2. Hyperlipidemia. 3. 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 4. History of diabetes mellitus type 2. DISCHARGE MEDICATIONS: 1. Simvastatin 40 mg at nighttime, 2. Aspirin 81 mg daily. 3. Celecoxib 200 mg daily. 4. Carvedilol 6.25 mg b.i.d. 5. Fish oil 1 capsule daily. 6. Folic acid 0.4 mg daily. 7. Metformin 500 mg daily. 8. Lisinopril/hydrochlorothiazide 1 tablet daily. 9. Levofloxacin 750 mg daily 12 tablets have been prescribed. 10. Acetaminophen 1000 mg every 6 hours. VITALS: At the time of discharge temperature of 97.9 degrees, pulse 74, respiratory 18, blood pressure 123/69, saturating 96% on room air. PHYSICAL EXAMINATION: General: Mr. Barajas does not appear in any acute distress. Mouth: Oral cavity is moist. Lungs: Air entry bilaterally equal. No wheeze, rhonchi, or crackles. Cardiovascular: S1, S2 normal. No murmur, rub, or gallop. Abdomen: Soft, nontender. Extremities: No lower extremity edema. Neurologic: He was alert and oriented x3. He does have a large scar of previous melanoma resection over his back. SIGNIFICANT LABS DURING HOSPITAL ADMISSION AND DISCHARGE: During hospital admission, he had WBC of 22,000 which improved to 8000 at the time of discharge. Hemoglobin 12.9, platelet 127,000. On presentation, he had BUN of 40 and creatinine of 1.4, which improved to BUN of 20 and creatinine of 1.1 at the time of discharge. His magnesium is 1.7. His procalcitonin on admission was 34. Urinalysis did not have any pyuria. His influenza A, B, urine Streptococcus and Legionella antigen were negative. SIGNIFICANT MICROBIOLOGY: His blood cultures 2/2 were positive for E coli on 09/27/2019, which was sensitive to levofloxacin. The blood cultures drawn on 09/29/2019 did not have any growth. IMAGING DURING HOSPITAL ADMISSION: Chest x-ray had mildly shallow inspiration, elevation of right hemidiaphragm without any pneumonia. Chest CT on September 28 had a right lower lobe pneumonia and bilateral pleural effusions. Echocardiogram performed had severe calcific aortic stenosis with mild aortic regurgitation, mild to moderate mitral regurgitation, very mild tricuspid regurgitation and moderate pulmonary hypertension, mild concentric left ventricular hypertrophy with ejection fraction of 65% and mild atrial enlargement. Chest x-ray on October 01 had a small effusions. Electrocardiogram on presentation had sinus rhythm with first-degree AV block, nonspecific ST-T abnormality. HOSPITAL COURSE SUMMARY: Mr. Barajas is an 89-year-old man who had presented to the [facility] on 09/27/2019 with chief complaints of nausea, vomiting, chills, subjective fever and weakness which started 6 hours prior to hospital presentation. Apparently, the patient was working in the yard the day prior, and he was chopping some of the leaves and branches when he presented to the [facility], he had temperature of 101.1 degrees, hypotension with blood pressure of 74/55, and he was hypoxic having hypoxic respiratory failure requiring a nasal cannula. He was started on intravenous fluids, intravenous norepinephrine and intravenous antibiotic and was transferred to [facility] for further management. He underwent chest CT to rule out pneumonia, which did detect right-sided lower lobe pneumonia associated with parapneumonic effusion. He was monitored in ICU for need for intravenous norepinephrine and intravenous antibiotics. With initial resuscitation, his blood pressure, WBC count and kidney function improved and 24 to 48 hours later, he was transferred to routine medical floor. His initial blood cultures were growing Escherichia coli which were sensitive to levofloxacin, so his oral antibiotics were changed to levofloxacin. At the time of discharge, his repeat blood culture came negative. Patient was breathing well on room air and it was decided to discharge him on oral levofloxacin. While working up his heart murmur found on physical examination, he was found to have severe aortic stenosis and he was provided contact information of rn transplant to establish care. TIME SPENT: More than 30 minutes discharge time was spent taking care of this patient. All of his questions were satisfactorily answered. cc: MD ZEINA Conley
== END 2019-10-01 20:07 | disposition home or self-care (01) | DRG 871 ==
LOC: P.ED 14:00 → SUATTDRO 14:01 → ICU 22:20 → 4N 09-30 11:27
PROVIDERS: ATTEND Internal Medicine